=== PATIENT | female | born 1940 | race Hispanic/Latino ===

== ENCOUNTER → 2018-10-07 | Day surgery (SDC) | payer MEDICARE ==
[2018-10-03 15:39] LABS: BASOPHILS % 0.6 % (0.0-1.0); EOSINOPHILS # (AUTO) 0.1 (0.0-0.4); EOSINOPHILS % 2.6 % (0.0-6.0); HEMATOCRIT 25.1 % (34.2-44.1); HEMOGLOBIN 8.2 g/dL (12.0-16.0); LYMPHOCYTES # (AUTO) 1.5 (1.0-3.2); LYMPHOCYTES % 27.7 % (18.0-39.1); MEAN CORPUSCULAR HEMOGLOBIN 31.5 pg (28-32); MEAN CORPUSCULAR HGB CONC 32.7 g/dL (31-35); MEAN CORPUSCULAR VOLUME 96.5 fL (81-99); MONOCYTES # (AUTO) 0.5 (0.2-0.8); MONOCYTES % 9.1 % (4.4-11.3); NEUTROPHILS # (AUTO) 3.2 (2.1-6.9); NEUTROPHILS % 59.8 % (38.7-80.0); PLATELET COUNT 210 x10e3/uL (140-360)
--- NOTE | 2018-10-03 15:53 | Diagnostic Imaging Report ---
EXAMINATION: CHEST 2 VIEWS INDICATION: Preop. Retrograde pyelogram. ^PER PROTOCOL ^PRE ADMIT COMPARISON: None FINDINGS: TUBES and LINES: None. LUNGS: Lungs are well inflated. Lungs are clear. There is no evidence of pneumonia or pulmonary edema. PLEURA: No pleural effusion or pneumothorax. HEART AND MEDIASTINUM: Tortuous thoracic aorta with calcification at the aortic arch. The cardiomediastinal silhouette is unremarkable. BONES AND SOFT TISSUES: No acute osseous lesion. Soft tissues are unremarkable. UPPER ABDOMEN: No free air under the diaphragm. IMPRESSION: No acute thoracic abnormality. Signed by: Dr. Yong Castillo M.D. on 10/03/2018 3:49 PM
[2018-10-03 15:54] LABS: INR 0.93
[2018-10-03 15:55] LABS: PARTIAL THROMBOPLASTIN TIME 30.6 seconds (23.8-35.5)
[2018-10-03 16:05] LABS: ANION GAP 15.6 mmol/L (8-16); CALCIUM 9.7 mg/dL (8.4-10.2); CREATININE, SERUM 4.19 mg/dL (0.57-1.11); POTASSIUM 4.6 mmol/L (3.5-5.1)
[~2018-10-07] MED LIST: CEFTRIAXONE SOD 1 GM/NS 50 ML 50 ML IV ONE; EPHEDRINE SULFATE INJ 50 MG/10 ML SYR ONE; FENOFIBRATE145 MG PO; FERROUS SULFAT325 M1 PO; FUROSEMIDE40 MG PO; GLYCOPYRROLATE INJ 1MG/ 5 ML SYR ONE; HUMALOG100 UNIT/1 SC; HYDROCODONE/APAP 5MG-325MG TAB ONE; IOPAMIDOL 610MG/1ML 300 MG/ML VIAL IV ONE; LANTUS 3ML100 UNITS/ SC; LIDOCAINE HCL 2% LOCAL INJ 5 ML SDV VIAL INJ ONE; LORATADINE10 MG PO; LOSARTAN-HCTZ1 EACH PO; NIFEDIPINE ER30 M1 PO; OMEPRAZOLE40 MG PO; ONDANSETRON HCL INJ 2MG/ML 2ML 2 MG/ML VIAL ONE; PREVACID15 MG PO; PROPOFOL IV EMULSION 10 MG/ML 20 ML VIAL ONE; SEVOFLURANE INHAL SOLN 250 ML PEN BTL ONE; SODIUM CHLORIDE 0.9% 500ML 500 ML ONE; VIT B12 PO; VIT D2 PO; ZEBETA10 MG PO
--- OUTSIDE RECORDS SUMMARY | 2018-10-07 05:18 | XMS REPORT ---
Author Author [facility] Address Unknown Phone Unavailable Care Team Providers Care Refrigeration Unit Repairer Name Role Phone BETITO VELIZ PP Unavailable BHANU DE OLIVEIRA Unavailable Unavailable NANI MELISSA Unavailable Unavailable Isaias HERNÁNDEZ Unavailable Unavailable Problems This patient has no known problems. Allergies, Adverse Reactions, Alerts This patient has no known allergies or adverse reactions. Medications This patient has no known medications. Results Test Description Test Time Test Comments Text Results Atomic Results Result Comments CHEST 2 VIEWS 2018-10-03 15:49:00 [place] [address] Patient Name: PHILIPPE HARRIS MR #: [id number] : 1940 Age/Sex: 78/F Req #: [id number] Adm Physician: Ordered by: BHANU DE OLIVEIRA MD Report #: [id number] Location: OR Room/Bed: Procedure: [id number] DX/CHEST 2 VIEWS Exam Date: 10/03/18 Exam Time: 1525 REPORT STATUS: Signed EXAMINATION: CHEST 2 VIEWS INDICATION: Preop. Retrograde pyelogram. PER PROTOCOL PRE ADMIT COMPARISON: None FINDINGS: TUBES and LINES: None. LUNGS: Lungs are well inflated. Lungs are clear. There is no evidence of pneumonia or pulmonary edema. PLEURA: No pleural effusion or pneumothorax. HEART AND MEDIASTINUM: Tortuous thoracic aorta with calcification at the aortic arch. The cardiomediastinal silhouette is unremarkable. BONES AND SOFT TISSUES: No acute osseous lesion. Soft tissues are unremarkable. UPPER ABDOMEN: No free air under the diaphragm. IMPRESSION: No acute thoracic abnormality. Signed by: Dr. Yong Castillo M.D. on 10/03/2018 3:49 PM Dictated By: YONG CASTILLO MD, MD 48 Transcribed By: BAHMAN on 10/03/181548 COPY TO: BHANU DE OLIVEIRA MD BASIC METABOLIC PANEL 2018-05-20 13:47:00 SODIUM (BEAKER) (test ebnw=543) 143 meq/L 136-145 POTASSIUM (BEAKER) (test wwfv=822) 4.2 meq/L 3.5-5.1 Specimen slightly hemolyzed CHLORIDE (BEAKER) (test ixvp=711) 107 meq/L 98-107 CO2 (BEAKER) (test sdmz=420) 27 meq/L 22-29 BLOOD UREA NITROGEN (BEAKER) (test lrde=967) 46 mg/dL 7-21 CREATININE (BEAKER) (test ocgx=229) 2.97 mg/dL 0.57-1.25 Specimen slightly hemolyzed GLUCOSE RANDOM (BEAKER) (test yndh=058) 104 mg/dL 70-105 CALCIUM (BEAKER) (test vmzh=433) 9.4 mg/dL 8.4-10.2 EGFR (BEAKER) (test qoqo=5587) 15 mL/min/1.73 sq m ESTIMATED GFR IS NOT ACCURATE CREATININE CLEARANCE IN PREDICTING GLOMERULAR FILTRATION RATE. ESTIMATED GFR IS NOT APPLICABLE FOR DIALYSIS PATIENTS. CBC W/PLT COUNT & AUTO [id number] 13:23:00* Test Item Value Reference Range Comments WHITE BLOOD CELL COUNT (BEAKER) (test ttig=273) 4.8 K/ L 3.5-10.5 RED BLOOD CELL COUNT (BEAKER) (test nvvo=522) 3.09 M/ L 3.93-5.22 HEMOGLOBIN (BEAKER) (test otea=415) 9.5 GM/DL 11.2-15.7 HEMATOCRIT (BEAKER) (test fpkn=239) 30.3 % 34.1-44.9 MEAN CORPUSCULAR VOLUME (BEAKER) (test tvkw=849) 98.1 fL 79.4-94.8 MEAN CORPUSCULAR HEMOGLOBIN (BEAKER) (test mhfq=469) 30.7 pg 25.6-32.2 MEAN CORPUSCULAR HEMOGLOBIN CONC (BEAKER) (test yzai=948) 31.4 GM/DL 32.2-35.5 RED CELL DISTRIBUTION WIDTH (BEAKER) (test jres=618) 13.8 % 11.7-14.4 PLATELET COUNT (BEAKER) (test rzhb=333) 212 K/CU MM 150-450 MEAN PLATELET VOLUME (BEAKER) (test dryn=074) 11.7 fL 9.4-12.3 NUCLEATED RED BLOOD CELLS (BEAKER) (test tdzm=427) 0 /100 WBC 0-0 NEUTROPHILS RELATIVE PERCENT (BEAKER) (test wgxa=727) 70 % LYMPHOCYTES RELATIVE PERCENT (BEAKER) (test mjcq=992) 12 % MONOCYTES RELATIVE PERCENT (BEAKER) (test wuem=590) 12 % EOSINOPHILS RELATIVE PERCENT (BEAKER) (test navb=194) 5 % BASOPHILS RELATIVE PERCENT (BEAKER) (test hreg=552) 1 % NEUTROPHILS ABSOLUTE COUNT (BEAKER) (test mtnd=152) 3.36 K/ L 1.56-6.13 LYMPHOCYTES ABSOLUTE COUNT (BEAKER) (test htin=423) 0.57 K/ L 1.18-3.74 MONOCYTES ABSOLUTE COUNT (BEAKER) (test iusi=827) 0.57 K/ L 0.24-0.36 EOSINOPHILS ABSOLUTE COUNT (BEAKER) (test cbrl=054) 0.24 K/ L 0.04-0.36 BASOPHILS ABSOLUTE COUNT (BEAKER) (test uxyq=986) 0.03 K/ L 0.01-0.08 IMMATURE GRANULOCYTES-RELATIVE PERCENT (BEAKER) (test sbyg=8416) 0 % 0-1 RAPID STREP A [id number] 13:19:00* Test Item Value Reference Range Comments STREP A ANTIGEN (BEAKER) (test hdua=426) Negative Negative RAPID INFLUENZA A&B [id number] 13:18:00* Test Item Value Reference Range Comments RAPID INFLUENZA A AG (BEAKER) (test ryzw=7192) Negative Negative, Inconclusive RAPID INFLUENZA B AG (BEAKER) (test fpql=4472) Negative Negative, Inconclusive POCT-LACTIC ACID, [id number] 13:08:00* Test Item Value Reference Range Comments POC-LACTIC ACID, VENOUS (BEAKER) (test pwqr=5654) 1.1 mmol/L 0.9-1.7 TESTED AT [facility] [address] [facility] [address] RAD, CHEST, 2 [id number] 11:41:00Reason for exam:->FEVERFINAL REPORT TECHNIQUE: Frontal and lateral chest radiographs dated 05/20/2018. CLINICAL HISTORY: Fever COMPARISON STUDY: None FINDINGS: Lungs are clear. No pleural effusion or pneumothorax. Cardiomediastinal silhouette is normal in size. Thoracic aorta is uncoiled. No pulmonary edema. Bones are osteopenic. There is an exaggerated thoracic kyphosis. IMPRESSION: Clear lungs. Signed: Rody Chambers MDReport Verified Date/Time: 05/20/2018 11:41:44 R eading Location: [facility] Radiology Reading Room Glucose, [id number] 10:55:00* Test Item Value Reference Range Comments POC Glucose (test code=POCGLUC) 105 mg/dL 70-115 If you consider your patient critically ill, the Gume Accu-Chek InformII metershould not be used for Glucose determinations.Draw a venous Glucose and send to the Main Lab for Analysis.
--- OUTSIDE RECORDS SUMMARY | 2018-10-07 05:18 | XMS REPORT | Clinical Summary ---
Author Author CLARISSA [facility] Organization [facility] Address Unknown Phone Unavailable Care Team Providers Care Clerical Secretary Name Role Phone Storm Rodriguez MD PCP Allergies No Known Allergies Medications Not on file Active Problems Not on file Encounters Care Team Description Date Type Specialty Magnus Cope MD Febrile illness (Primary Dx); Nonintractable headache, unspecified chronicity pattern, unspecified headache type; Chronic renal impairment, unspecified CKD stage; Anemia, unspecified type 05/20/2018 Emergency Emergency Medicine - 05/21/2018 after 10/06/2017 Social History Date Tobacco Use Types Packs/Day Years Used Never Assessed Sex Assigned at Date Recorded Not on file Industry Job Start Date Occupation Not on file Not on file Not on file Travel End Travel History Travel Start No recent travel history available. Last Filed Vital Signs Time Taken Vital Sign Reading 05/20/2018 3:02 PM [employer] [facility] [employer] Blood Pressure 183/76 05/20/2018 3:02 PM [employer] Pulse 53 05/20/2018 1:36 PM [employer] [facility]G[facility] Temperature 37.1 C (98.8 F) 05/20/2018 3:02 PM [employer] [facility] Respiratory Rate 17 05/20/2018 3:02 PM [employer] [facility] C[employer]G[facility] Oxygen Saturation 99% - Inhaled Oxygen - Concentration 05/20/2018 10:57 AM [employer] CHILD CAREG[employer] Weight 56.7 kg (125 lb) 05/20/2018 10:57 AM [employer] NEED[employer] CHILD CAREGIVER Height 152.4 cm (5') 05/20/2018 10:57 AM [employer] CHILD CAREGIVER Body Mass Index 24.41 Plan of Treatment Not on file Procedures Comments Procedure Name Priority Date/Time Associated Diagnosis RHYTHM STRIP - SCAN 05/21/2018 1:20 PM SPECIAL NEEDS CHILD CAREGIVER POCT-LACTIC ACID, VENOUS Routine 05/20/2018 1:02 PM [employer] NEED[employer] CHILD CAREGIVER CBC W/PLT COUNT & AUTO STAT 05/20/2018 DIFFERENTIAL 12:58 PM [employer] NEED[employer] CHILD CAREGIVER BASIC METABOLIC PANEL (7) STAT 05/20/2018 12:58 PM [employer] CHILD CAREGIVER CBC W/PLT COUNT & AUTO STAT 05/20/2018 DIFFERENTIAL 12:58 PM [employer] [facility]ILD C[employer]GIVER RAPID INFLUENZA A&B STAT 05/20/2018 SCREEN 12:29 PM [employer] CHILD CAREGIVER RAPID STREP A SCREEN STAT 05/20/2018 12:28 PM SPECIAL NEEDS CHILD CAREGIVER XR CHEST 2 VIEWS STAT 05/20/2018 11:20 AM SPECIAL NEEDS CHILD CAREGIVER after 10/06/2017 Results * RHYTHM STRIP - SCAN (05/21/2018 1:20 PM SPECIAL NEEDS CHILD CAREGIVER) Narrative Performed At * POC-Lactic Acid, Venous (05/20/2018 1:02 PM SPECIAL NEEDS CHILD CAREGIVER) POC-Lactic Acid, Venous 1.1Comment: TESTED AT [facility] 0.9 - 1.7 mmol/L [address] Specimen Blood Performing Organization Address City/State/[place] [address] [facility] [place] * CBC with platelet count + automated diff (05/20/2018 12:58 PM SPECIAL NEEDS CHILD CAREGIVER) WBC 4.8 3.5 - 10.5 K/L [facility] RBC 3.09 (L) 3.93 - 5.22 M/L [facility] Hemoglobin 9.5 (L) 11.2 - 15.7 GM/DL [facility] Hematocrit 30.3 (L) 34.1 - 44.9 % [facility] MCV 98.1 (H) 79.4 - 94.8 fL [facility] MCH 30.7 25.6 - 32.2 pg [facility] MCHC 31.4 (L) 32.2 - 35.5 GM/DL [facility] RDW 13.8 11.7 - 14.4 % [facility] Platelets 212 150 - 450 K/CU MM [facility] MPV 11.7 9.4 - 12.3 fL [facility] nRBC 0 0 - 0 /100 WBC [facility] % Neutros 70 % [facility] % Lymphs 12 % [facility] % Monos 12 % [facility] % Eos 5 % [facility] % Baso 1 % [facility] # Neutros 3.36 1.56 - 6.13 K/L [facility] # Lymphs 0.57 (L) 1.18 - 3.74 K/L [facility] # Monos 0.57 (H) 0.24 - 0.36 K/L [facility] # Eos 0.24 0.04 - 0.36 K/L [facility] # Baso 0.03 0.01 - 0.08 K/L [facility] Immature 0 0 - 1 % [facility] Granulocytes-Relative [facility] Specimen Blood Performing Organization Address City/State/Zipcode Phone Number [facility] [address] [place] [address] [facility] * Basic metabolic panel (Na, K+, Cl, CO2, Glu, Ca, BUN, Cr) (05/20/2018 12:58 PM SPECIAL NEEDS CHILD CAREGIVER) Sodium 143 136 - 145 meq/L [facility] Potassium 4.2Comment: Specimen slightly 3.5 - 5.1 meq/L [facility] hemolyzed [facility] Chloride 107 98 - 107 meq/L [facility] CO2 27 22 - 29 meq/L [facility] BUN 46 (H) 7 - 21 mg/dL [facility] Creatinine 2.97 (H)Comment: Specimen 0.57 - 1.25 mg/dL [facility] slightly hemolyzed [facility] Glucose 104 70 - 105 mg/dL [facility] Calcium 9.4 8.4 - 10.2 mg/dL [facility] EGFR 15Comment: ESTIMATED GFR IS mL/min/1.73 sq m [facility] NOT ACCURATE CREATININE [facility] CLEARANCE IN PREDICTING GLOMERULAR FILTRATION RATE. ESTIMATED GFR IS NOT APPLICABLE FOR DIALYSIS PATIENTS. Specimen Blood Performing Organization Address City/[facility] Cent[facility] Phone Number [address] [address] [phone] [place] [address] * Influenza antigen A & B (Rapid) (05/20/2018 12:29 PM [facility] NEEDS CHILD CAREGIVER) Rapid Influenza A Antigen NEGATIVE LABORATORY FINDING Negative, Inconclusive [facility] Rapid influenza B Antigen NEGATIVE LABORATORY FINDING Negative, Inconclusive [facility] Specimen Nasopharyngeal Performing Organization Address [facility] Phone Number [address] [address] [facility] * Rapid Strep A screen (05/20/2018 12:28 PM SPECIAL NEEDS CHILD CAREGIVER) Strep A Ag Negative Negative [facility] Specimen Throat Performing Organization Address City/[facility] Centercode Phone Number [address] [address] [facility] * XR chest 2 views (05/20/2018 11:20 AM SPECIAL NEEDS CHILD CAREGIVER) Specimen Narrative Performed At FINAL REPORT GE RIS TECHNIQUE: Frontal and lateral chest radiographs dated 05/20/2018. CLINICAL HISTORY: Fever COMPARISON STUDY: None FINDINGS: Lungs are clear. No pleural effusion or pneumothorax. Cardiomediastinal silhouette is normal in size. Thoracic aorta is uncoiled. No pulmonary edema. Bones are osteopenic. There is an exaggerated thoracic kyphosis. IMPRESSION: Clear lungs. Signed: Cami Chambers MD Report Verified Date/Time:05/20/2018 11:41:44 Reading Location: [facility] Radiology Reading Room Procedure Note Interface, External Ris In - 05/20/2018 11:44 AM SPECIAL NEEDS CHILD CAREGIVER FINAL REPORT TECHNIQUE: Frontal and lateral chest radiographs dated 05/20/2018. CLINICAL HISTORY: Fever COMPARISON STUDY: None FINDINGS: Lungs are clear. No pleural effusion or pneumothorax. Cardiomediastinal silhouette is normal in size. Thoracic aorta is uncoiled. No pulmonary edema. Bones are osteopenic. There is an exaggerated thoracic kyphosis. IMPRESSION: Clear lungs. Signed: Cmai Chambers MD Report Verified Date/Time: 05/20/2018 11:41:44 Reading Location: [facility] Radiology Reading Room Performing Organization Address City/State/Zipcode Phone Number GE RIS after 10/06/2017 Insurance Payer Benefit Subscriber ID Type Phone Address Plan / Group [facility] xxxxxxxxx MEDICARE D CARE MEDICARE O
[2018-10-07 08:30] VITALS: BP 150/56
--- NOTE | 2018-10-09 14:29 | Operative Report ---
DATE OF PROCEDURE: 10/07/2018 SURGEON: Khurram Larios MD PREOPERATIVE DIAGNOSES: 1. Chronic kidney disease, stage IV. 2. Bilateral hydronephrosis. POSTOPERATIVE DIAGNOSES: 1. Chronic kidney disease, stage IV. 2. Bilateral hydronephrosis. PROCEDURES: 1. Cystourethroscopy with left ureteral catheterization and left retrograde pyelogram (separate procedure for renal failure). 2. Cystourethroscopy with right ureteral catheterization and right retrograde pyelogram (separate procedure for renal failure). 3. Cystourethroscopy with insertion of a left indwelling stent (entirely separate procedure for left hydronephrosis). 4. Cystourethroscopy with insertion of a right indwelling stent (entirely separate procedure for right hydronephrosis). 5. Supervision of fluoroscopy. 6. Interpretation of retrograde pyelography. ANESTHESIA: General. ESTIMATED BLOOD LOSS: Minimal. COMPLICATIONS: None. INDICATIONS FOR PROCEDURE: Ms. Green is a very pleasant 78-year-old female patient with stage IV renal failure, found to have bilateral hydronephrosis. She had a long discussion about alternatives, risks, and benefits, including nothing, cystoscopy, stent placement, percutaneous nephrostomy, open surgery. She voiced understanding of the options, alternatives, the risks and the benefits, and she elected to proceed with stent placement voicing understanding stents, temporary indwelling device and it must be removed, failure to do so could lead to encrustation, infection, inflammation, atrophy, and loss of kidney. PROCEDURE IN DETAIL: After informed consent was obtained, the patient was taken to the operative suite. She was placed supine on the operating table and underwent general anesthesia by Anesthesia Service. Placed in dorsal lithotomy position, sterilely prepped and draped in a standard fashion for cystoscopy. A 21-Eritrean cystoscope was inserted per urethra. Normal urethra was noted. Panendoscopy of the bladder revealed no tumors and no stones. Both ureteral orifices were in normal anatomic location and position and were seen to efflux clear urine. Bilateral retrograde pyelograms were performed to avoid nephrotoxic risk of dye. This revealed distal ureters narrowing bilaterally with proximal hydronephrosis. Ureteral stents were deployed with coils in the renal pelvis and coils in the bladder bilaterally. The bladder was drained and the patient was awakened from anesthesia and transferred to recovery room in excellent condition. Supervision of fluoroscopy and interpretation of retrograde pyelography: I was present for the entire procedure and I supervised the use of fluoroscopy. There was no radiologist present at the time of procedure. Attention was turned towards the left and right ureters, which were catheterized with an 8-Eritrean cone-tipped catheter in retrograde fashion. Contrast was injected revealing delicate distal ureter with narrowing, proximal hydronephrosis bilaterally. Bilateral stents in adequate position. MD LIZ Soliz/MODL /[id number] cc: Jose Sky MD
== END | disposition home or self-care (01) ==
LOC: OR 05:15
PROVIDERS: ATTEND Urology
DX: N13.30 Unspecified hydronephrosis (principal); E11.22 Type 2 diabetes mellitus with diabetic chronic kidney disease; I12.0 Hypertensive chronic kidney disease with stage 5 chronic kidney disease or end stage renal disease; N18.6 End stage renal disease; R39.14 Feeling of incomplete bladder emptying; K27.9 Peptic ulcer, site unspecified, unspecified as acute or chronic, without hemorrhage or perforation; R00.1 Bradycardia, unspecified; I45.10 Unspecified right bundle-branch block; Z01.810 Encounter for preprocedural cardiovascular examination; Z01.812 Encounter for preprocedural laboratory examination; Z01.818 Encounter for other preprocedural examination; Z79.4 Long term (current) use of insulin
CPT/HCPCS: 36415 ×2; 52332; 71046; 74420; 80048; 82948; 85025; 85610; 85730; 93005; C1758; C2617; J0696; J2001; J2405; J2704; J3490; J7040; Q9967